=== PATIENT | female | born 1930 | race Caucasian/White ===

== ENCOUNTER → 2016-11-20 | Outpatient (CLI) | payer MEDICARE | END | disposition home or self-care (01) | LOC: GMAB 10:05 | PROVIDERS: ATTEND Family Medicine | DX: E03.9 Hypothyroidism, unspecified (principal) ==

== ENCOUNTER → 2018-01-24 | Outpatient (CLI) | payer MEDICARE | LOC: GMAE 10:42 | PROVIDERS: ATTEND Family Medicine | DX: E03.9 Hypothyroidism, unspecified (principal) ==

== ENCOUNTER → 2018-02-05 | Outpatient (CLI) | payer MEDICARE ==
--- NOTE | 2018-02-05 12:49 | CT ---
EXAM DESCRIPTION: Abdomen/Pelvis w/wo Contrast: Computed Tomography. CLINICAL HISTORY: ASYMPTOMATIC MICROSCOPIC HEMATURIA COMPARISON: None. TECHNIQUE: Spiral-axial scans at 5.0 mm intervals through the abdomen and pelvis before and after standard dose nonionic IV contrast. No oral contrast. Coronal and sagittal 2.0 mm reconstructions. 2.0 mm Delayed helical-axial scans, liver through the pubic symphysis. No adverse reactions. Total Exam DLP 1533.55 mGy - cm. This exam was performed according to our departmental CT dose-optimization program which includes automated exposure control, adjustment of the mA and/or kV according to patient size and/or use of iterative reconstruction technique; to reduce radiation dose to as low as reasonably achievable (ALARA). FINDINGS: Lung bases and pleura: Minimal bibasilar dependent atelectasis. Coronary artery calcification. Liver, Stomach, Spleen, Adrenal Glands: The third segment of the duodenum appears to end in a blind loop anterior to the aorta on axial series 6, images 40-43. The proximal third segment is interpreted to be anastomosed to small bowel via side to side connection. But no surgical material is noted. Gastric bypass is not seen; no surgical sharita or sutures are seen in the epigastrium or left upper quadrant. Second portion of the duodenum is minimally distended by gas. Long axis of the right lobe the liver is 18.6 cm with no focal lesions. Adrenal glands and spleen are unremarkable. Pancreas, Gallbladder, Ducts: Rim calcified stone almost 2 cm in diameter adjacent to the neck of the gallbladder with distal gallbladder thickening in the dependent fundus of the gallbladder is by a partial septum and contains a partially calcified stone measuring 2.5 cm in diameter (axial images 36-39, and coronal images 39-50). No fatty stranding or fascial thickening around this abnormal appearing fundus. Normal caliber of the common bile duct with minimal atrophy of the pancreas otherwise unremarkable. Kidneys and Ureters: Negative. Mesentery: No fatty stranding and fascial thickening around the distal ileum in the right lower quadrant. Please see below. No Ascites or free air. No fascial thickening or fatty stranding elsewhere. Aorta: Marked atherosclerotic calcification bilaterally minimal calcification continuing into the bilateral common iliac arteries. Significant calcification of the ostia of the major branch vessels. Narrowing of the lumen with no definite aneurysm. Small Bowel: Minimal distention of ileal loops superior to the urinary bladder. No air-fluid levels. The blind loop of the proximal jejunum may be on axial images 38 and coronal image 63. Intermittent distention of the proximal ileum but no significant air-fluid levels. Terminal Ileum/Cecum: Distal and terminal ileum with mucosal and wall thickening and enhancement. Minimal fatty stranding and fascial thickening abutting these segments. Ileocecal valve and cecum are unremarkable, (axial sequence 4, images 41-44) but more superior in location than usual. Appendix not seen. No fatty stranding or fascial thickening around the cecum. Colon: Minimal enhancement of the mucosa of the descending colon and transverse: No distention or air-fluid levels. Normal density of the surrounding fat. Minimal distention of the descending colon by fecal matter. Extending in the rectosigmoid with diverticula but no complications. Pelvic Organs: No radiodense stones in the urinary bladder. Vaginal cuff is unremarkable. No fluid in the cul-de-sac. Spine and Bony Pelvis: Decreased bone density. Spondylosis with disc space narrowing canal and foraminal narrowing L4-5 more evident L2-3. Cystic degeneration of the left acetabular facet. Abdominal Wall/Back Soft Tissues: Minimal diastases of the umbilicus not containing bowel. IMPRESSION: 1. Thickening and enhancement of the em of the distal ileum and terminal ileum with adjacent fatty stranding and right paracolic fascial thickening. This is a nonspecific inflammatory process. Intermittent dilation of more proximal ileal segments. No obstruction or perforation. 2. Mid duodenal to mid jejunal side to side anastomotic bypass with blind loops of the distal duodenum in the proximal jejunum. This can be confirmed by clinical history and/or upper GI and small bowel follow-through contrast examination with fluoroscopy. Consider surgical evaluation. 3. Rim calcified stone, approximately 2 cm in diameter in the proximal gallbladder abutting the neck. Distended gallbladder is partially from the more proximal gallbladder by prominent septum or fold and contains a 2 cm fluid-fatty density lobulated stone. Alternatively, this could represent a previous inflammatory process in the gallbladder with calcification. No fatty stranding fascial thickening or gas bubbles. Pancreas and duct are unremarkable. Consider right upper quadrant abdominal ultrasound and/or radionuclide hepatobiliary imaging. Consider surgical evaluation. 4. Diverticulosis distal colon but no complications. 5. Kidneys ureters and bladder are unremarkable. CRITICAL COMMUNICATION: The critical value was discussed directly by phone with Dr. Urban Landa at approximately 1240 hours, on February 05, 2018. Electronically signed by: Hilario Jacobson MD 02/05/2018 12:48 PM CDT
== END ==
LOC: CT 07:51
PROVIDERS: ATTEND Family Medicine
DX: R31.21 Asymptomatic microscopic hematuria (principal); K57.30 Diverticulosis of large intestine without perforation or abscess without bleeding; K80.20 Calculus of gallbladder without cholecystitis without obstruction

== ENCOUNTER → 2018-04-29 | Outpatient (CLI) | payer MEDICARE | LOC: GMAE 11:16 | PROVIDERS: ATTEND Family Medicine | DX: E03.9 Hypothyroidism, unspecified (principal) ==

== ENCOUNTER → 2019-01-28 | Outpatient (CLI) | payer MEDICARE | LOC: GMAE 10:44 | PROVIDERS: ATTEND Family Medicine | DX: E03.9 Hypothyroidism, unspecified (principal); E78.2 Mixed hyperlipidemia; Z79.899 Other long term (current) drug therapy ==

== ENCOUNTER → 2020-04-16 | Outpatient (CLI) | payer MEDICARE ==
--- NOTE | 2020-04-16 16:37 | CT ---
PROCEDURE: CT LUNG CANCER SCREENING CLINICAL HISTORY: Screening visit initial examination, Lung cancer screening,. This patient meets eligibility criteria for low-dose CT lung cancer screening. COMPARISON: None. TECHNIQUE: Low-dose dose transaxial CT of the chest with multiplanar reconstruction. kVp: 120 mA: 45 DLP: 12/22/2019 FINDINGS: Diagnostic quality: Adequate Lung nodules: Left anterior upper lobe 6 mm subpleural nodularity may represent focal scarring or a pulmonary nodule (series 2 image 59). Left upper lobe punctate, 2 mm calcified pulmonary nodule (series 2 image 30). Lungs: COPD: Mild emphysematous changes within the mid and upper lungs. Fibrosis: None Lymph nodes: Nonenlarged Other findings: Mild dependent atelectasis within the lung bases. Pleural space: Effusion: None Calcifications: None Thickening: None Pneumothorax: None Heart: Heart size: Normal Coronary calcification: Mild coronary arterial calcification. Pericardial effusion: None Other findings: Upper abdomen: Gallbladder wall calcifications are redemonstrated. Thorax: Chronic appearing right posterior rib and inferior scapular body fractures. IMPRESSION: 1. Left anterior upper lobe 6 mm subpleural nodularity may represent focal scarring or a pulmonary nodule. 2. Mild pulmonary emphysematous changes. LUNG RADSCategory 3: PROBABLY BENIGN. Probably benign finding(s), short-term follow-up suggested; which includes nodules at the low likelihood of becoming a clinically active cancer. Findings include solid nodule(s) >= 6 to < 8 mm at baseline or new nodules 4 mm to < 6 mm. Part solid nodule(s) is >= 6 mm total diameter with solid component < 6 mm or new nodules < 6 mm in total diameter. Non-solid groundglass nodule(s) >= [address] or new. MANAGEMENT: Six month follow-up low dose CT. This exam was performed according to our departmental dose-optimization program, which includes automated exposure control, adjustment of the mA and/or kV according to patient size and/or use of iterative reconstruction technique. Electronically signed by: Jamie Peguero DO 04/16/2020 4:36 PM CDT
--- NOTE | 2020-04-16 16:57 | CT ---
EXAM DESCRIPTION: CT ABDOMEN AND PELVIS WITHOUT AND WITH CONTRAST CLINICAL HISTORY: INCONTINENCE OF FECES COMPARISON: CT abdomen and pelvis 02/05/2018. TECHNIQUE: CT of the abdomen and pelvis are performed prior to and during IV bolus intravenous contrast. No oral contrast was given. Delayed phase imaging was obtained. FINDINGS: The lung bases are unremarkable. The liver is normal in size and enhancement. No focal hepatic lesion. Circumferential gallbladder wall calcifications at the fundus and region of the gallbladder neck appears unchanged. The spleen is normal in size. The pancreas and adrenals enhance normally. No adrenal nodule.A duodenal diverticulum is redemonstrated. The bilateral kidneys are normal in size, contour, and enhancement. No hydronephrosis, nephrolithiasis, or perinephric fluid collection. The ureters are normal in caliber without stone or obstruction. No focal urothelial lesion identified. Moderate sigmoid diverticulosis without evidence of acute diverticulitis. Long segment of distal ileum demonstrating circumferential bowel wall thickening, mucosal hyperenhancement and mild perienteric fat stranding (with engorgement of the vasa recta). Possible additional small bowel skip lesion (series 601 image 66). No pneumatosis or evidence of bowel perforation. No free fluid within the pelvis. The distended bladder is normal in appearance. No focal bladder wall thickening. The uterus is surgically absent. Moderate atherosclerotic disease affects the aorta and its branches. Mildly prominent mesenteric lymph node within the right lower abdomen can be reactive, similar compared to prior examination. No acute osseous abnormality. IMPRESSION: 1. Distal ileum long segment small bowel wall thickening and perienteric inflammation concerning for an acute infectious or inflammatory enteritis (including Crohn's disease). No abscess or bowel obstruction. 2. Moderate sigmoid diverticulosis. 3. Chronic gallbladder wall calcification, unchanged. This exam was performed according to our departmental dose-optimization program, which includes automated exposure control, adjustment of the mA and/or kV according to patient size and/or use of iterative reconstruction technique. Electronically signed by: Jamie Peguero DO 04/16/2020 4:56 PM CDT
== END ==
LOC: LAB.O 09:24
PROVIDERS: ATTEND Family Medicine
DX: Z12.2 Encounter for screening for malignant neoplasm of respiratory organs (principal); J43.9 Emphysema, unspecified; R91.8 Other nonspecific abnormal finding of lung field; Z87.891 Personal history of nicotine dependence; R15.9 Full incontinence of feces; K80.20 Calculus of gallbladder without cholecystitis without obstruction; E03.9 Hypothyroidism, unspecified; Z13.220 Encounter for screening for lipoid disorders; R31.21 Asymptomatic microscopic hematuria; K57.30 Diverticulosis of large intestine without perforation or abscess without bleeding
CPT/HCPCS: 36415; 74178; 80053; 80061; 81001; 84439; 84443; 84480; 85025; G0297

== ENCOUNTER → 2020-04-28 | Outpatient (CLI) | payer MEDICARE, OTHER ==
--- NOTE | 2020-04-29 16:41 | US ---
EXAM DESCRIPTION: Gall Bladder: ULTRASOUND. CLINICAL HISTORY: DISEASE OF GALL BLADDER COMPARISON: CT scan abdomen and pelvis April 16 TECHNIQUE: Transabdominal scanning: Chan-scale and Doppler modes. FINDINGS: Gallbladder: Contains sludge and stones. Largest stone 1.3 x 6.6 mm diameter with acoustic shadowing. No fluid around the gallbladder. Wall thickening upper normal range 2.9 mm Non-tender with transducer pressure. Common bile duct: caliber 6.7 mm borderline dilated. Liver: Heterogeneously increased echogenicity; contour liver capsule smooth where seen. No fluid around the liver. Intrahepatic biliary ducts normal caliber. Doppler hepatopedal flow portal vein.. 8.5 mm normal caliber.. Long axis right lobe 15.0 cm. Pancreas: normal size Normal echogenicity. Duct not seen. Aorta: 1.3 cm normal caliber. Minimal atherosclerotic intimal changes. Right kidney: long axis is 10.5 cm; volume 129.7 mL. Normal cortical thickness with increased echogenicity but less than the liver. 9.5 mm cyst lower pole.. IMPRESSION: 1. Gallbladder with sludge and stones. Borderline wall thickening. No fluid. Nontender with transducer pressure. Borderline dilated common bile duct. 2. Steatosis of the liver with size upper normal limits. Normal vascularity in caliber ducts. Smooth capsule with no ascites. Pancreas unremarkable. 3. Heterogeneous appearance of the kidney most likely related to patient's age. No stones or hydronephrosis. Small cyst. Normal caliber of the abdominal aorta. Electronically signed by: Hilario Jacobson MD 04/29/2020 4:39 PM CDT
== END ==
LOC: US 13:38
PROVIDERS: ATTEND Family Medicine
DX: K82.9 Disease of gallbladder, unspecified (principal); K80.20 Calculus of gallbladder without cholecystitis without obstruction; K76.0 Fatty (change of) liver, not elsewhere classified; N28.1 Cyst of kidney, acquired; N28.9 Disorder of kidney and ureter, unspecified

== ENCOUNTER → 2020-05-26 | Outpatient (CLI) | payer MEDICARE, OTHER | LOC: LAB.O 14:58 | PROVIDERS: ATTEND Internal Medicine Gastroenterology | DX: K52.9 Noninfective gastroenteritis and colitis, unspecified (principal) ==

== ENCOUNTER → 2020-05-27 | Outpatient (CLI) | payer MEDICARE, OTHER | LOC: LAB.O 14:03 | PROVIDERS: ATTEND Internal Medicine Gastroenterology | DX: K52.9 Noninfective gastroenteritis and colitis, unspecified (principal) ==

== ENCOUNTER 2020-06-23 05:41 | Day surgery (SDC) | payer MEDICARE, OTHER ==
[2020-06-23] MEDS ORDERED: LACTATED RINGERS 1,000 ML ONE (05:47)
[2020-06-23] MEDS ORDERED: LIDOCAINE 1% 10 ML VIAL INJ ONE (07:00)
[2020-06-23] MEDS ORDERED: PROPOFOL 200 MG/20 ML VIAL IV ONE (07:00)
[2020-06-23 07:42] VITALS: O2SAT 98
--- NOTE | 2020-06-23 09:20 | OP ---
DATE OF PROCEDURE: 06/23/20 PREOPERATIVE DIAGNOSIS: 1. Abnormal imaging of the gastrointestinal tract. 2. Chronic diarrhea. 3. Suspected Crohn's disease. POSTOPERATIVE DIAGNOSIS: 1. Crohn's disease of the small and large intestine. 2. Inflammatory stricture of the terminal ileum. PROCEDURE: 1. Colonoscopy. SURGEON: Hilton Cruz MD ANESTHESIA: Monitored anesthesia care. ESTIMATED BLOOD LOSS: Less than 5 mL. COMPLICATIONS: None. PROCEDURE: The patient was placed in the left lateral decubitus position. A time-out was performed. After deep sedation was achieved, a digital rectal exam was performed and noted to be unremarkable. The Olympus pediatric colonoscope was inserted through the anus, into the rectum and advanced to the terminal ileum under direct visualization with mild difficulty due to a tortuous sigmoid colon. The cecum was identified by the terminal ileum, ileocecal valve and the appendiceal orifice. Photodocumentation of these locations was performed. The terminal ileum was intubated. The endoscope was then progressively withdrawn and the total colonic lumen evaluated. Retroflexion was performed in the rectum. The endoscope was then withdrawn and the procedure terminated. The patient tolerated the procedure well with no immediate complications. FINDINGS: 1. Severe inflammation with mucosal edema, erythema, erosions and small ulceration and two inflammatory type strictures were seen in the terminal ileum. I was able to traverse both strictures with moderate resistance. Multiple biopsies were taken for histology, rule out Crohn's disease. 2. Inflammation was noted throughout the colon, mainly in the ascending, transverse, descending and sigmoid colon, consisting of patchy erythema and erosions. Multiple biopsies were taken from the ascending, transverse, descending, sigmoid colon and rectum for histology. 3. Mild colonic diverticulosis was noted in the sigmoid colon. IMPRESSION: 1. Suspected Crohn's disease of the small and large intestine, biopsied as above. 2. Mild colonic diverticulosis in the sigmoid colon. RECOMMENDATIONS: 1. Okay to discharge home once the patient meets discharge criteria. 2. Resume prior diet. 3. Resume home medications. 4. Start Pentasa. 5. Outpatient labs to be obtained: TPMT, T-SPOT, viral hepatitis serologies. 6. Consider initiation of a biologic such as Remicade. 7. Followup in the GI clinic with Dr. Cruz in one month. #[id number] [facility]
[2020-06-23 09:24] VITALS: BP 161/73; TEMP 99
== END 2020-06-23 09:15 | disposition home or self-care (01) ==
LOC: AMB 05:41
PROVIDERS: ATTEND Internal Medicine Gastroenterology
DX: K52.9 Noninfective gastroenteritis and colitis, unspecified (principal); K57.30 Diverticulosis of large intestine without perforation or abscess without bleeding; R93.3 Abnormal findings on diagnostic imaging of other parts of digestive tract; Z88.0 Allergy status to penicillin; Z88.2 Allergy status to sulfonamides; Z79.899 Other long term (current) drug therapy
CPT/HCPCS: 00811; 45380; J3490; J7120

== ENCOUNTER → 2020-06-30 | Outpatient (CLI) | payer MEDICARE, OTHER | LOC: LAB.O 14:05 | PROVIDERS: ATTEND Internal Medicine Gastroenterology | DX: K50.00 Crohn's disease of small intestine without complications (principal); K52.9 Noninfective gastroenteritis and colitis, unspecified; R93.3 Abnormal findings on diagnostic imaging of other parts of digestive tract; K82.8 Other specified diseases of gallbladder ==